=== PATIENT | male | born 1945 | race Caucasian/White ===

== ENCOUNTER 2017-10-04 12:46 | Emergency (ER) | payer OTHER, MEDICAID ==
[2017-10-04 12:56] VITALS: BP 149/89
--- NOTE | 2017-10-04 13:19 | EDPHY ---
H & P Stated Complaint: Stomache ache and nausea since 7pm last night. Time Seen by Provider: 10/04/17 13:13 HPI/ROS: CHIEF COMPLAINT: Nausea vomiting HISTORY OF PRESENT ILLNESS: The patient is a 71-year-old man who comes to the emergency department complaining that he has having nausea and vomiting last night. That stopped but then he was having abdominal cramping this morning. He states that it felt like his muscles were sore from vomiting. About an hour prior to arrival he took some [place] and since that his symptoms have completely resolved. He is now ear to go home and does not wish to have workup. No history of abdominal surgery. REVIEW OF SYSTEMS: Constitutional: denies: chills, fever, recent illness, recent injury EENTM: denies: blurred vision, double vision, nose congestion Respiratory: denies: cough, shortness of breath Cardiac: denies: chest pain, irregular heart rate, lightheadedness, palpitations Gastrointestinal/Abdominal: See HPI Genitourinary: denies: dysuria, frequency, hematuria, pain Musculoskeletal: denies: joint pain, muscle pain Skin: denies: lesions, rash, jaundice, bruising Neurological: denies: headache, numbness, paresthesia, tingling, dizziness, weakness Hematologic/Lymphatic: denies: blood clots, easy bleeding, easy bruising Immunologic/allergic: denies: HIV/AIDS, transplant EXAM: GENERAL: Well-appearing, well-nourished and in no acute distress. HEAD: Atraumatic, normocephalic. EYES: Pupils equal round and reactive to light, extraocular movements intact, sclera anicteric, conjunctiva are normal. ENT: TMs normal, nares patent, oropharynx clear without exudates. Moist mucous membranes. NECK: Normal range of motion, supple without lymphadenopathy or JVD. LUNGS: Breath sounds clear to auscultation bilaterally and equal. No wheezes rales or rhonchi. HEART: Regular rate and rhythm without murmurs, rubs or gallops. ABDOMEN: Soft, nontender, normoactive bowel sounds. No guarding, no rebound. No masses appreciated. BACK: No CVA tenderness, no spinal tenderness, step-offs or deformities EXTREMITIES: Normal range of motion, no pitting or edema. No clubbing or cyanosis. NEUROLOGICAL: Cranial nerves II through XII grossly intact. Normal speech, normal gait. 5/5 strength, normal movement in all extremities, normal sensation PSYCH: Normal mood, normal affect. SKIN: Warm, dry, normal turgor, no visible rashes or lesions. Source: Patient, Family Exam Limitations: No limitations - Personal History Current Tetanus Diphtheria and Acellular Pertussis (TDAP): Unsure - Medical/Surgical History Hx Asthma: No Hx Chronic Respiratory Disease: No Hx Diabetes: No Hx Cardiac Disease: No Hx Renal Disease: No Hx Cirrhosis: No Hx Alcoholism: No Hx HIV/AIDS: No Hx Splenectomy or Spleen Trauma: No Other PMH: Denies - Family History Significant Family History: No pertinent family hx - Social History Smoking Status: Never smoked Alcohol Use: Sober Constitutional: Initial Vital Signs Temperature (C) 36.9 C 10/04/17 12:52 Heart Rate 64 10/04/17 12:52 Respiratory Rate 18 10/04/17 12:52 Blood Pressure 149/89 H 10/04/17 12:52 O2 Sat (%) 96 10/04/17 12:52 O2 Delivery Mode Room Air Allergies/Adverse Reactions: No Known Allergies Allergy (Unverified 06/24/09 16:14) Home Medications: Medication Instructions Recorded NK [No Known Home Meds] 10/04/17 Medical Decision Making ED Course/Re-evaluation: The patient has a reassuring abdominal exam. I offered lab work and imaging to be sure he is not just having intermittent pain from a ruptured appendix or passing a kidney stone or gallstone. The patient and family decline. He is eager to go home. They promise to return immediately if the pain returns. Differential Diagnosis: Partial list of the Differential diagnosis considered include but were not limited to; gastritis, food poisoning, muscle spasm and although unlikely based on the history and physical exam, I also considered biliary disease, kidney stone, appendicitis, obstruction, volvulus, ischemia. I discussed these differential diagnoses and the plan with the patient as well as the usual and expected course. The patient understands that the diagnosis is provisional and that in medicine we are not always correct and that further workup is often warranted. Usual and customary warnings were given. All of the patient's questions were answered. The patient was instructed to return to the emergency department should the symptoms at all worsen or return, otherwise to followup with the physician as we discussed. Departure - Departure Disposition: Home, Routine, Self-Care Clinical Impression: Abdominal pain Qualifiers: Abdominal location: unspecified location Qualified Code(s): R10.9 - Unspecified abdominal pain Condition: Fair Instructions: Acute Abdominal Pain (ED) Referrals: NONE *PRIMARY CARE P,. [Primary Care Provider] - As per Instructions William Heller MD [[facility] [place] Primary Care Provider] - As per Instructions
== END 2017-10-04 13:20 | disposition home or self-care (01) ==
DX: R10.9 Unspecified abdominal pain (principal)

== ENCOUNTER 2018-04-09 21:43 | Observation (INO) | payer OTHER, MEDICAID ==
[2018-04-09] MEDS ORDERED: FAMOTIDINE 20 MG/NACL 50 ML IV ONE (22:12)
[2018-04-09] MEDS ORDERED: ONDANSETRON 4 MG/2 ML VIAL IVP ONE (22:12)
[2018-04-09] MEDS ORDERED: NS 1,000 ML IV ONE (22:12)
--- NOTE | 2018-04-09 22:15 | EDPHY ---
H & P Stated Complaint: vomiting Time Seen by Provider: 04/09/18 21:58 HPI/ROS: HPI The patient presents with abdominal pain and vomiting. He is brought in by ambulance from the grocery store. He developed abdominal pain about 1 hr ago which he describes as periumbilical and sharp. This pain was constant and moderate in severity. He went to the grocery store to see if he could by medication for this, though began vomiting several times and 911 was called. He received Zofran 0 DT in route. He has had ongoing vomiting here. He has continued abdominal pain. He denies any diarrhea or constipation. He has no history of similar symptoms. He has no prior abdominal operations. REVIEW OF SYSTEMS 10 systems were reviewed and negative with the exception of the elements mentioned in the history of present illness. PMHx: Healthy, though no primary care doctor Soc Hx: Lives in [place] with his sister PHYSICAL General Appearance: Alert, uncomfortable appearing Eyes: Pupils equal and round no pallor or injection ENT, Mouth: Mucous membranes dry Respiratory: There are no retractions, lungs are clear to auscultation Cardiovascular: Regular rate and rhythm Gastrointestinal: Abdomen is soft and diffusely tender to palpation, no masses , bowel sounds normal Neurological: A&O, moves all extremities Skin: Warm and dry, no rashes Musculoskeletal: Neck is supple non tender Extremities: symmetrical, full range of motion Psychiatric: Patient is oriented X 3, there is no agitation Source: Patient Exam Limitations: No limitations - Personal History Current Tetanus/Diphtheria Vaccine: Unsure Current Tetanus Diphtheria and Acellular Pertussis (TDAP): Unsure - Medical/Surgical History Hx Asthma: No Hx Chronic Respiratory Disease: No Hx Diabetes: No Hx Cardiac Disease: No Hx Renal Disease: No Hx Cirrhosis: No Hx Alcoholism: No Hx HIV/AIDS: No Hx Splenectomy or Spleen Trauma: No Other PMH: Denies - Social History Smoking Status: Never smoked Constitutional: Initial Vital Signs Temperature (C) 36.6 C 04/09/18 21:54 Heart Rate 66 04/09/18 21:54 Respiratory Rate 16 04/09/18 21:54 Blood Pressure 166/102 H 04/09/18 21:54 O2 Sat (%) 95 04/09/18 21:54 O2 Delivery Mode Nasal Cannula O2 (L/minute) 2 Allergies/Adverse Reactions: No Known Allergies Allergy (Verified 04/09/18 21:55) Home Medications: Medication Instructions Recorded Ondansetron Odt [Zofran Odt 4 mg 4 mg PO Q4 PRN #10 tab 04/10/18 (*)] levOFLOXACIN [Levofloxacin] 750 mg PO DAILY #7 tablet 04/10/18 Medical Decision Making - Diagnostics Imaging Results: Imaging Impressions Abdomen CT 04/09/18 22:12 Impression: 1. Large bilateral inguinal hernias, left greater than right with several loops of small bowel extending into both inguinal hernias and descending colon extending into the left inguinal hernia. Recommend surgery consult. 2. No bowel obstruction or dilation. 3. No evidence of diverticulitis, colitis, or definite appendicitis. 4. Left lower lobe pneumonia. Findings and recommendations discussed with Emergency Department physician, Nancy Mackenzie MD at 23:45 hour, 04/09/2018. Final report concurs with initial preliminary interpretation. Chest X-Ray 04/09/18 23:47 Impression: Left lower lobe pneumonia. Imaging: Discussed imaging studies w/ calliope player Radiologist, I viewed and interpreted images myself Differential Diagnosis: This is a 72-year-old male with no history of past medical problems, though does not see doctors routinely, who presents brought in by ambulance from the grocery store for periumbilical abdominal pain associated with multiple episodes of nonbloody nonbilious emesis. Here, he has ongoing vomiting, his vital signs are normal, he does appear mildly dehydrated and has abdominal tenderness. Plan for IV fluids, symptomatic relief, basic labs and CT scan. The patient received IV fluids and Zofran with transient improvement in his symptoms. Labs were relatively unremarkable. CT scan of his abdomen demonstrated bilateral inguinal hernias which were non incarcerated but quite large containing both small and large bowel. Because of this I consulted with Dr. Canchola, on-call general surgeon. He came to see the patient in the emergency department and was able to reduce both of his hernias without difficulty. Incidentally, the patient was noted to have a left lower lobe pneumonia on his CT scan. Chest x-ray confirmed this. I spoke with the patient and he does say that over the last 1 week he has had a productive cough without any fevers or chills. I have given him azithromycin and ceftriaxone for this. The patient was observed in the emergency department for several hours. He was able to tolerate fluids without difficulty. However he began to vomit again and had increasing diarrhea. He said he could not manage the symptoms at home. I plan to admit him to the hospitalist and have discussed the case with Dr. Almanza. - Data Points Laboratory Results: Laboratory Results 04/09/18 22:53 04/09/18 22:53 04/09/18 04/09/18 04/09/18 23:47 22:53 22:53 WBC RBC Hgb Hct MCV MCH MCHC RDW Plt Count MPV Neut % (Auto) Lymph % (Auto) [place] % (Auto) Eos % (Auto) Baso % (Auto) Nucleat RBC Rel Count Absolute Neuts (auto) Absolute Lymphs (auto) Absolute Monos (auto) Absolute Eos (auto) Absolute Basos (auto) Absolute Nucleated RBC Immature Gran % Immature Gran # Sodium 141 mEq/L mEq/L (135-145) Potassium 3.6 mEq/L mEq/L (3.5-5.2) Chloride 109 mEq/L mEq/L (97-110) Carbon Dioxide 24 mEq/l mEq/l (22-31) Anion Gap 8 mEq/L mEq/L (6-14) BUN 16 mg/dL mg/dL (7-23) Creatinine 1.1 mg/dL mg/dL (0.7-1.3) Estimated GFR > 60 Glucose 131 mg/dL H mg/dL (70-100) Calcium 9.5 mg/dL mg/dL (8.5-10.4) Total Bilirubin 0.6 mg/dL mg/dL (0.1-1.4) Conjugated Bilirubin 0.3 mg/dL mg/dL (0.0-0.5) Unconjugated Bilirubin 0.3 mg/dL mg/dL (0.0-1.1) AST 18 IU/L IU/L (17-59) ALT 20 IU/L L IU/L (21-72) Alkaline Phosphatase 64 IU/L IU/L (38-126) Total Protein 7.2 g/dL g/dL (6.3-8.2) Albumin 4.5 g/dL g/dL (3.5-5.0) Lipase 104 IU/L IU/L (23-300) Procalcitonin < 0.02 ng/mL L ng/mL (0.02-0.10) Urine Color YELLOW Urine Appearance CLEAR Urine pH 7.0 (5.0-7.5) Ur Specific [place] 1.018 (1.002-1.030) Urine Protein NEGATIVE (NEGATIVE) Urine Ketones TRACE H (NEGATIVE) Urine Blood NEGATIVE (NEGATIVE) Urine Nitrate NEGATIVE (NEGATIVE) Urine Bilirubin NEGATIVE (NEGATIVE) Urine Urobilinogen NEGATIVE EU EU (0.2-1.0) Ur Leukocyte Esterase NEGATIVE (NEGATIVE) Urine RBC 1-3 /hpf /hpf (0-3) Urine WBC 1-3 /hpf /hpf (0-3) Ur Epithelial Cells NONE SEEN /lpf /lpf (NONE-1+) Urine Mucus TRACE /lpf /lpf (NONE-1+) Urine Glucose 1+ H (NEGATIVE) 04/09/18 22:53 WBC 11.44 10^3/uL H 10^3/uL (3.80-9.50) RBC 4.84 10^6/uL 10^6/uL (4.40-6.38) Hgb 16.5 g/dL g/dL (13.7-17.5) Hct 45.8 % % (40.0-51.0) MCV 94.6 fL fL (81.5-99.8) MCH 34.1 pg pg (27.9-34.1) MCHC 36.0 g/dL g/dL (32.4-36.7) RDW 12.5 % % (11.5-15.2) Plt Count 215 10^3/uL 10^3/uL (150-400) MPV 10.0 fL fL (8.7-11.7) Neut % (Auto) 86.8 % H % (39.3-74.2) Lymph % (Auto) 8.3 % L % (15.0-45.0) [place] % (Auto) 4.0 % L % (4.5-13.0) Eos % (Auto) 0.2 % L % (0.6-7.6) Baso % (Auto) 0.3 % % (0.3-1.7) Nucleat RBC Rel Count 0.0 % % (0.0-0.2) Absolute Neuts (auto) 9.93 10^3/uL H 10^3/uL (1.70-6.50) Absolute Lymphs (auto) 0.95 10^3/uL L 10^3/uL (1.00-3.00) Absolute Monos (auto) 0.46 10^3/uL 10^3/uL (0.30-0.80) Absolute Eos (auto) 0.02 10^3/uL L 10^3/uL (0.03-0.40) Absolute Basos (auto) 0.03 10^3/uL 10^3/uL (0.02-0.10) Absolute Nucleated RBC 0.00 10^3/uL 10^3/uL (0-0.01) Immature Gran % 0.4 % % (0.0-1.1) Immature Gran # 0.05 10^3/uL 10^3/uL (0.00-0.10) Sodium Potassium Chloride Carbon Dioxide Anion Gap BUN Creatinine Estimated GFR Glucose Calcium Total Bilirubin Conjugated Bilirubin Unconjugated Bilirubin AST ALT Alkaline Phosphatase Total Protein Albumin Lipase Procalcitonin Urine Color Urine Appearance Urine pH Ur Specific [place] Urine Protein Urine Ketones Urine Blood Urine Nitrate Urine Bilirubin Urine Urobilinogen Ur Leukocyte Esterase Urine RBC Urine WBC Ur Epithelial Cells Urine Mucus Urine Glucose Medications Given: Hydromorphone HCl (Dilaudid) 0.4 mg IVP Q4HRS PRN PRN Reason: Pain, Severe Unable to Take PO Stop: 04/20/18 02:43 Last Admin: 04/10/18 03:17 Dose: 0.4 mg Potassium Chloride/Dextrose/Sod Cl (D5w 1/2 Ns W/ 20 Kcl/L) 1,000 mls @ 100 mls /hr IV CONT CLARA Stop: 10/07/18 02:14 Last Admin: 04/10/18 03:22 Dose: 1,000 mls Ondansetron HCl (Zofran) 4 mg IVP Q4HRS PRN PRN Reason: Nausea/Vomiting, Can't Take PO Stop: 10/07/18 02:11 Last Admin: 04/10/18 03:17 Dose: 4 mg Discontinued Medications Sodium Chloride (Ns) 1,000 mls @ 0 mls/hr IV EDNOW ONE; Wide Open PRN Reason: Protocol Stop: 04/09/18 22:13 Last Admin: 04/09/18 22:52 Dose: 1,000 mls Famotidine/Sodium Chloride (Pepcid 20 Mg (Premix)) 50 mls @ 200 mls/hr IV EDNOW ONE Stop: 04/09/18 22:26 Last Admin: 04/09/18 22:54 Dose: 50 mls Azithromycin 500 mg/ Sodium (Chloride) 255 mls @ 255 mls/hr IV EDNOW ONE PRN Reason: Protocol Stop: 04/10/18 01:14 Last Admin: 04/10/18 01:07 Dose: 255 mls Ceftriaxone Sodium/Dextrose (Rocephin 1 Gm (Premix)) 50 mls @ 100 mls/hr IV EDNOW ONE PRN Reason: Protocol Stop: 04/10/18 00:44 Last Admin: 04/10/18 00:21 Dose: 50 mls Ondansetron HCl (Zofran) 4 mg IVP EDNOW ONE Stop: 04/09/18 22:13 Last Admin: 04/09/18 22:54 Dose: 4 mg Departure - Departure Disposition: [facility] Inpatient Acute Clinical Impression: Pneumonia Qualifiers: Pneumonia type: due to unspecified organism Laterality: left Lung location: lower lobe of lung Qualified Code(s): J18.1 - Lobar pneumonia, unspecified organism Inguinal hernia bilateral, non-recurrent Qualifiers: Obstruction and gangrene presence: without obstruction or gangrene Recurrence: not specified as recurrent Qualified Code(s): K40.20 - Bilateral inguinal hernia , without obstruction or gangrene, not specified as recurrent Vomiting Qualifiers: Vomiting type: unspecified Vomiting Intractability: non-intractable Nausea presence: with nausea Qualified Code(s): R11.2 - Nausea with vomiting, unspecified Condition: Fair
[2018-04-09] MEDS ORDERED: IOPAMIDOL (ISOVUE 370) 100 ML BTL IV ONE (22:43)
[2018-04-09 23:04] LABS: PLATELET COUNT 215 10^3/uL (150-400)
[2018-04-10] MEDS ORDERED: AZITHROMYCIN IV 500 MG in NS 250 ML IV ONE (00:15)
[2018-04-10] MEDS ORDERED: ONDANSETRON 4MG PREPACK#2 BTL TAKEHOME ONE (01:51)
[2018-04-10] MEDS ORDERED: ACETAMINOPHEN 325 MG TAB PO PRN (02:12)
[2018-04-10] MEDS ORDERED: ONDANSETRON DISINTEGRATING 4 MG TAB PO PRN (02:12)
[2018-04-10] MEDS ORDERED: PROMETHAZINE HCL 25 MG/ML INJ IVP PRN (02:12)
[2018-04-10] MEDS ORDERED: ONDANSETRON 4 MG/2 ML VIAL IVP PRN (02:12)
[2018-04-10] MEDS ORDERED: D5W 1/2 NS W/ 20 KCl/L 1,000 ML IV SCH (02:15)
--- NOTE | 2018-04-10 02:39 | PDGENHP ---
History and Physical - Chief Complaint Nausea, vomiting - History of Present Illness 72 yo M w/ minimal PMHx presents with nausea, vomiting, and abdominal pain. The patient tells me he has had a cough, runny nose, and chills for about a week. Then, today he developed nausea, vomiting, abdominal pain, and diarrhea. He denies recent antibiotics or history of C. Diff. He did eat a spicy burger from [employer], which he says is unusual for him. He also denies sick contacts. He rarely visits doctors and takes no medications. He tells me his only medical problem is bilateral inguinal hernias. In the ED evaluation is fairly benign with 0/4 SIRS criteria. LLL pneumonia was noted on CT but he has minimal respiratory symptoms. At the time of my evaluation he remains significantly symptomatic with abdominal pain, nausea, and diarrhea. No blood noted in vomit or stool. Case discussed with ED physician Dr. Mackenzie; records reviewed and summarized above. History Information - Allergies/Home Medication List Allergies/Adverse Reactions: No Known Allergies Allergy (Verified 04/09/18 21:55) I have personally reviewed and updated: family history, medical history - Past Medical History no pertinent PMH - Surgical History Reports: no pertinent surgical hx - Family History Additional family history: Asked, denies - Social History Smoking Status: Never smoked Review of Systems Review of Systems: ROS: 10pt was reviewed & negative except for what was stated in HPI & below Physical Exam Physical Exam: Temp Pulse Resp BP Pulse Ox 36.6 C 79 16 168/100 H 99 04/09/18 21:54 04/10/18 01:44 04/10/18 01:44 04/10/18 01:44 04/10/18 01:44 Constitutional: chronically ill appearing, uncomfortable Eyes: PERRL, EOMI Ears, Nose, Mouth, Throat: moist mucous membranes, no oral mucosal ulcers Cardiovascular: regular rate and rhythym, no murmur, rub, or gallop Respiratory: no respiratory distress, clear to auscultation Gastrointestinal: normoactive bowel sounds, tenderness (Diffuse), No guarding, No rebound, No distension Skin: warm, normal color Musculoskeletal: full muscle strength, no muscle tenderness Neurologic: AAOx3, CN II-XII Intact Psychiatric: interacting appropriately, not anxious Lab Data & Imaging Review 04/09/18 22:53 04/09/18 22:53 WBC 11.44 10^3/uL (3.80-9.50) H 04/09/18 22:53 RBC 4.84 10^6/uL (4.40-6.38) 04/09/18 22:53 Hgb 16.5 g/dL (13.7-17.5) 04/09/18 22:53 Hct 45.8 % (40.0-51.0) 04/09/18 22:53 MCV 94.6 fL (81.5-99.8) 04/09/18 22:53 MCH 34.1 pg (27.9-34.1) 04/09/18 22:53 MCHC 36.0 g/dL (32.4-36.7) 04/09/18 22:53 RDW 12.5 % (11.5-15.2) 04/09/18 22:53 Plt Count 215 10^3/uL (150-400) 04/09/18 22:53 MPV 10.0 fL (8.7-11.7) 04/09/18 22:53 Neut % (Auto) 86.8 % (39.3-74.2) H 04/09/18 22:53 Lymph % (Auto) 8.3 % (15.0-45.0) L 04/09/18 22:53 [place] % (Auto) 4.0 % (4.5-13.0) L 04/09/18 22:53 Eos % (Auto) 0.2 % (0.6-7.6) L 04/09/18 22:53 Baso % (Auto) 0.3 % (0.3-1.7) 04/09/18 22:53 Nucleat RBC Rel Count 0.0 % (0.0-0.2) 04/09/18 22:53 Absolute Neuts (auto) 9.93 10^3/uL (1.70-6.50) H 04/09/18 22:53 Absolute Lymphs (auto) 0.95 10^3/uL (1.00-3.00) L 04/09/18 22:53 Absolute Monos (auto) 0.46 10^3/uL (0.30-0.80) 04/09/18 22:53 Absolute Eos (auto) 0.02 10^3/uL (0.03-0.40) L 04/09/18 22:53 Absolute Basos (auto) 0.03 10^3/uL (0.02-0.10) 04/09/18 22:53 Absolute Nucleated RBC 0.00 10^3/uL (0-0.01) 04/09/18 22:53 Immature Gran % 0.4 % (0.0-1.1) 04/09/18 22:53 Immature Gran # 0.05 10^3/uL (0.00-0.10) 04/09/18 22:53 Sodium 141 mEq/L (135-145) 04/09/18 22:53 Potassium 3.6 mEq/L (3.5-5.2) 04/09/18 22:53 Chloride 109 mEq/L (97-110) 04/09/18 22:53 Carbon Dioxide 24 mEq/l (22-31) 04/09/18 22:53 Anion Gap 8 mEq/L (6-14) 04/09/18 22:53 BUN 16 mg/dL (7-23) 04/09/18 22:53 Creatinine 1.1 mg/dL (0.7-1.3) 04/09/18 22:53 Estimated GFR > 60 04/09/18 22:53 Glucose 131 mg/dL (70-100) H 04/09/18 22:53 Calcium 9.5 mg/dL (8.5-10.4) 04/09/18 22:53 Total Bilirubin 0.6 mg/dL (0.1-1.4) 04/09/18 22:53 Conjugated Bilirubin 0.3 mg/dL (0.0-0.5) 04/09/18 22:53 Unconjugated Bilirubin 0.3 mg/dL (0.0-1.1) 04/09/18 22:53 AST 18 IU/L (17-59) 04/09/18 22:53 ALT 20 IU/L (21-72) L 04/09/18 22:53 Alkaline Phosphatase 64 IU/L (38-126) 04/09/18 22:53 Total Protein 7.2 g/dL (6.3-8.2) 04/09/18 22:53 Albumin 4.5 g/dL (3.5-5.0) 04/09/18 22:53 Lipase 104 IU/L (23-300) 04/09/18 22:53 Urine Color YELLOW 04/09/18 23:47 Urine Appearance CLEAR 04/09/18 23:47 Urine pH 7.0 (5.0-7.5) 04/09/18 23:47 Ur Specific [place] 1.018 (1.002-1.030) 04/09/18 23:47 Urine Protein NEGATIVE (NEGATIVE) 04/09/18 23:47 Urine Ketones TRACE (NEGATIVE) H 04/09/18 23:47 Urine Blood NEGATIVE (NEGATIVE) 04/09/18 23:47 Urine Nitrate NEGATIVE (NEGATIVE) 04/09/18 23:47 Urine Bilirubin NEGATIVE (NEGATIVE) 04/09/18 23:47 Urine Urobilinogen NEGATIVE EU (0.2-1.0) 04/09/18 23:47 Ur Leukocyte Esterase NEGATIVE (NEGATIVE) 04/09/18 23:47 Urine RBC 1-3 /hpf (0-3) 04/09/18 23:47 Urine WBC 1-3 /hpf (0-3) 04/09/18 23:47 Ur Epithelial Cells NONE SEEN /lpf (NONE-1+) 04/09/18 23:47 Urine Mucus TRACE /lpf (NONE-1+) 04/09/18 23:47 Urine Glucose 1+ (NEGATIVE) H 04/09/18 23:47 Imaging Review: Imaging Impressions Abdomen CT 04/09/18 22:12 Impression: 1. Large bilateral inguinal hernias, left greater than right with several loops of small bowel extending into both inguinal hernias and descending colon extending into the left inguinal hernia. Recommend surgery consult. 2. No bowel obstruction or dilation. 3. No evidence of diverticulitis, colitis, or definite appendicitis. 4. Left lower lobe pneumonia. Findings and recommendations discussed with Emergency Department physician, Nancy Mackenzie MD at 23:45 hour, 04/09/2018. Final report concurs with initial preliminary interpretation. Chest X-Ray 04/09/18 23:47 Impression: Left lower lobe pneumonia. Assessment & Plan Assessment: 72 yo M w/ minimal PMHx presents with abdominal pain, nausea, and vomiting. Plan: 1. Nausea, vomiting - Most likely etiology is viral noting coexisting URI symptoms and CT (personally reviewed/interpreted) without significant pathology. He has 0/4 SIRS criteria at the moment. - Admit for observation - GI PCR if diarrhea continues - mIVF, anti-emetics PRN - Clear liquid diet, ADAT 2. LLL infiltrate - This is subtle but present on imaging. The patient has had viral symptoms for the last week and is displaying no respiratory distress and 0 /4 SIRS criteria in the ED. He is currently oxygenating well on RA. - S/p CTX/Azithro in the ED - Observe off of further antibiotics for now, low threshold to restart CAP coverage if symptoms develop - Will check respiratory PCR, procalcitonin 3. Bilateral inguinal hernias - These were able to be reduced by general surgery in the ED. - Outpatient follow up Diet - Clears, mIVF, ADAT Code - Full Ppx - LMWH Dispo - Admit under observation status
[2018-04-10] MEDS ORDERED: HYDROmorphONE/DILAUDID 1 MG/ML INJ IVP PRN (02:44)
[2018-04-10 05:23] LABS: PLATELET COUNT 192 10^3/uL (150-400)
[2018-04-10 07:42] VITALS: BP 108/64
[2018-04-10] MEDS ORDERED: MULTIVITAMINS 1 EACH TAB PO SCH (09:00)
[2018-04-10] MEDS ORDERED: ENOXAPARIN 40 MG/0.4 ML SYR SC SCH (09:00)
[2018-04-10] MEDS ORDERED: Herbals/Supplements -Info Only PO SCH (09:00)
--- NOTE | 2018-04-10 11:04 | ASMTCMCOM ---
CM Note CM Note Notes: Met with pt, he lives in [place] with his sister Kemi. [facility] and then felt very ill, an ambulance was called, and pt admitted into the hospital. CM called his sister with pt's permission and let her know pt was in hospital, she was very worried. She states that pt has some memory issues but otherwise is very robust. Sister and brother will help getting him to his truck and getting him home. AVELINA Plan: Independent Date Signed: 04/10/2018 11:03 AM Electronically Signed By:Tram Kat RN
--- NOTE | 2018-04-10 12:07 | ASMTLACE ---
LACE Length of stay for Answers: Less than 1 day current admission Acuity / Level of Answers: Yes Care: Did the patient have an inpatient admission? # of Emergency department Answers: 1-2 visits in the last 6 months Score: 4 Date Signed: 04/10/2018 12:07 PM Electronically Signed By:Tram Kat RN
--- NOTE | 2018-04-10 18:21 | GDS ---
DISCHARGE DIAGNOSES: 1. Nausea and vomiting. 2. Left lower lobe infiltrate. 3. Bilateral inguinal hernias. STUDIES AND PROCEDURES DONE: CT of the abdomen. PHYSICAL EXAMINATION: GENERAL: The patient is alert. VITAL SIGNS: Afebrile at 36.7, pulse 65, respiratory rate 16, blood pressure is 108/64, he is saturating 94% on room air. I have seen and evaluated the patient on the day of discharge. HOSPITAL COURSE: The patient is a 72-year-old male who presented to the emergency room with complaints of nausea and vomiting, abdominal pain. He was evaluated during this hospitalization with a CT scan of his abdomen. He was noted to have intermittent nausea, which has completely resolved at this time per the patient. He is tolerating a regular diet. He did receive supportive care during this hospital course. Laboratory values are essentially benign. CT of the abdomen did demonstrate bilateral inguinal hernias. The patient tells me he is able to reduce these independently in the outpatient setting. I have instructed to follow up with the general surgeon for future treatment. There was a questionable left lower lobe infiltrate on imaging. He does have recent viral symptoms. He has continued with antibiotic therapy. He will be discharged home independently. DISCHARGE MEDICATIONS: Please refer to EMR form. I have provided the patient with any prescription for Levaquin 750mg daily at the time of disposition. Followup will be with his primary care physician, Dr. Genny Briggs, as well as Dr. Erickson Dow. /[id number]/MODL MTDD
== END 2018-04-10 12:50 | disposition home or self-care (01) ==
LOC: EDUNIT# → INTOOBSV 04-10 02:01 → F3E 04-10 03:05
PROVIDERS: ADMIT Student in an Organized Health Care Education/Training Program; ATTEND Internal Medicine
DX: R11.2 Nausea with vomiting, unspecified (principal); R91.8 Other nonspecific abnormal finding of lung field; K40.20 Bilateral inguinal hernia, without obstruction or gangrene, not specified as recurrent
CPT/HCPCS: 71046; 74177; 96361; 96365; 96367; 96375; 96376; 99285; G0378; J0456; J0696; J1170; J1650; J2405; Q9967

== ENCOUNTER → 2018-05-09 | Outpatient (CLI) | payer OTHER, MEDICAID | LOC: FIMAGING 15:14 | PROVIDERS: ATTEND Internal Medicine | DX: J40 Bronchitis, not specified as acute or chronic (principal); Z87.01 Personal history of pneumonia (recurrent) ==

== ENCOUNTER 2018-05-20 10:58 | Observation (INO) | payer OTHER, MEDICAID ==
--- NOTE | 2018-05-16 13:41 | GHP ---
[f rep st] PREOP HISTORY AND PHYSICAL DATE OF ADMISSION: 05/20/2018 CHIEF COMPLAINT: Bilateral inguinal hernias. HISTORY OF PRESENT ILLNESS: This is a 72-year-old male who presents for surgical evaluation of bilat eral inguinal hernias. They have been present for several months and are getting progressively more tender. PAST MEDICAL HISTORY: Malignant melanoma, pneumonia. PAST SURGICAL HISTORY: Melanoma resection, right cheek. MEDICATIONS: Tylenol 325 mg as needed for pain. ALLERGIES: Seasonal allergies, no known drug allergies. SOCIAL HISTORY: The patient is a nonsmoker. He drinks alcohol occasionally. He has a prior history of recreational drug use; however, denies current use. PHYSICAL EXAM: GENERAL: Well appearing, well dressed, in no acute distress. HEENT: Normocephalic, atraumatic. No gross hearing deficits. Mucous membranes moist, PERRLA. CARDIOVASCULAR: Regular r ate and rhythm, no clicks, murmurs or rubs. CHEST: Clear to auscultation bilaterally. No increased work of breathing. ABDOMEN: Soft, nontender, nondistended. GENITOURINARY: Bilateral inguinal her nias are present. MUSCULOSKELETAL: Moves all extremities equally x4. NEUROLOGIC: Alert and orient ed x3. PSYCHIATRIC: Appropriate mood and affect. IMPRESSION/PLAN: This is a healthy 72-year-old male with bilateral inguinal hernias. We have discus sed all risks and options. Risks of surgery include, but are not limited to infection, bleeding, dam age to surrounding structures, including the spermatic cord, bowel, or bladder, recurrence, heart att ack, and . We will plan for laparoscopic bilateral inguinal hernia repairs with mesh. Patient understands and wishes to proceed. /[id number]/MODL
[2018-05-20] MEDS ORDERED: ceFAZolin 2 GM/DEXTROSE 100 ML IV ONE (11:07)
[2018-05-20] MEDS ORDERED: LR 1,000 ML IV ONE (11:09)
--- NOTE | 2018-05-20 12:24 | PDHPUP ---
History & Physical Update H&P update statement: This history and physical update is based on an assessment of the patient which was completed after admission or registration (within 24 hours), but prior to the surgery/procedure. H&P update: H&P reviewed & patient examined, no change in patient's condition since H&P completed
--- NOTE | 2018-05-20 12:26 | POSTOPPROG ---
Post Op Note Date of Operation: 05/20/18 Surgeon: Jessica Mitchell Needle Grader: Jessica Mitchell Anesthesiologist: Juan Diego Lin Anesthesia: GET(General Endotracheal) Pre-op Diagnosis: BIH Post-op Diagnosis: same Procedure: lap BIH repairs c mesh Findings: huge indirect RIH, large direct LIH Inf/Abcess present in the surg proc area at time of surgery?: No EBL: Minimal Complications: none
[2018-05-20] MEDS ORDERED: BUPIVACAINE 0.5% 30 ML SDV ONE (12:34)
--- NOTE | 2018-05-20 12:57 | PDANEPAE ---
ANE Past Medical History - Cardiovascular History Hx Hypertension: No Hx Arrhythmias: No Hx Chest Pain: No Hx Coronary Artery / Peripheral Vascular Disease: No Hx CHF / Valvular Disease: No Hx Palpitations: No - Pulmonary History Hx COPD: No Hx Asthma/Reactive Airway Disease: No Hx Recent Upper Respiratory Infection: No Hx Oxygen in Use at Home: No Hx Sleep Apnea: No Sleep Apnea Screening Result - Last Documented: Negative Pulmonary History Comment: recent PNA that was treated with antibiotics - Neurologic History Hx Cerebrovascular Accident: No Hx Seizures: No Hx Dementia: No - Endocrine History Hx Diabetes: No Hypothyroid: No Hyperthyroid: No Obesity: no - Renal History Hx Renal Disorders: No - Liver History Hx Hepatic Disorders: No - Neurological & Psychiatric Hx Hx Neurological and Psychiatric Disorders: No - Cancer History Hx Cancer: No - Congenital Disorder History Hx Congenital Disorders: No - GI History GERD: no Hx Gastrointestinal Disorders: No - Other Health History Other Health History: none - Chronic Pain History Chronic Pain: No - Surgical History Prior Surgeries: melanoma removed from right cheek ANE Review of Systems Review of Systems: - Exercise capacity Exercise capacity: >=4 METS METS (RN): 4 METS ANE Patient History - Allergies Allergies/Adverse Reactions: No Known Allergies Allergy (Verified 05/15/18 10:50) - Home Medications Home Medications: Acetaminophen [Tylenol 325mg (*)] PRN 05/15/18 [Last Taken 05/19/18] - NPO status NPO Since - Liquids (Date): 05/20/18 NPO Since - Liquids (Time): 00:00 NPO Since - Solids (Date): 05/19/18 NPO Since - Solids (Time): 07:00 - Anes Hx Anes Hx: no prior problems - Smoking Hx Smoking Status: Never smoked - Alcohol Use Alcohol Use: Rarely - Family Anes Hx Family Anes Hx: neg - N/A Family Hx Anesthesia Complications: none ANE Labs/Vital Signs - Vital Signs Blood Pressure: 136/84 Heart Rate: 71 Respiratory Rate: 18 O2 Sat (%): 96 Height: 175 cm Weight: 74 kg ANE Physical Exam - Airway Neck exam: FROM Mallampati Score: Class 2 Mouth exam: dentures - Pulmonary Pulmonary: no respiratory distress, no rales or rhonchi, clear to auscultation - Cardiovascular Cardiovascular: regular rate and rhythym, no murmur, rub, or gallop - ASA Status ASA Status: II ANE Anesthesia Plan Anesthesia Plan: general endotracheal anesthesia Total IV Anesthesia: No
[2018-05-20] MEDS ORDERED: REMIFENTANIL HCL 1 MG VIAL ONE (13:32)
[2018-05-20] MEDS ORDERED: fentaNYL 100 MCG/2 ML INJ ONE ×2 (13:32→15:49)
[2018-05-20] MEDS ORDERED: ROCURONIUM 50 MG/5 ML VIAL ONE ×2 (13:33→14:41)
[2018-05-20] MEDS ORDERED: PROPOFOL/EMULSION 500 MG/50 ML BOTTLE IV ONE (13:33)
[2018-05-20] MEDS ORDERED: PROPOFOL 200 MG/20 ML VIAL ONE (13:33)
[2018-05-20] MEDS ORDERED: ONDANSETRON 4 MG/2 ML VIAL ONE (13:33)
[2018-05-20] MEDS ORDERED: KETOROLAC 30 MG/1 ML SDV ONE (13:34)
[2018-05-20] MEDS ORDERED: DEXAMETHASONE 4 MG/ML VIAL ONE (13:34)
[2018-05-20] MEDS ORDERED: LIDOCAINE 2% 5 ML SDV ONE (13:34)
[2018-05-20] MEDS ORDERED: PHENYLEPHRINE HCL 100 MCG/ML SYR ONE (13:42)
[2018-05-20] MEDS ORDERED: PROMETHAZINE HCL 25 MG/ML INJ IVP PRN (14:03)
[2018-05-20] MEDS ORDERED: ACETAMINOPHEN 500 MG TAB PO PRN (14:03)
[2018-05-20] MEDS ORDERED: ONDANSETRON 4 MG/2 ML VIAL IVP PRN ×2 (14:03→15:48)
[2018-05-20] MEDS ORDERED: oxyCODONE IR 5 MG TAB PO PRN (14:03)
[2018-05-20] MEDS ORDERED: HYDROCODONE/APAP 5/325 TAB PO PRN (14:03)
[2018-05-20] MEDS ORDERED: fentaNYL 100 MCG/2 ML INJ IVP PRN (14:03)
[2018-05-20] MEDS ORDERED: NALOXONE HCL 0.4 MG/ML INJ IVP PRN (14:03)
[2018-05-20] MEDS ORDERED: PHENYLEPHRINE HCL 100 MCG/ML SYR IVP PRN (14:03)
[2018-05-20] MEDS ORDERED: SUGAMMADEX SODIUM 200 MG/2 ML VIAL IVP ONE (15:08)
[2018-05-20] MEDS ORDERED: HYDROmorphONE/DILAUDID 1 MG/ML INJ IVP PRN (15:48)
[2018-05-20] MEDS ORDERED: OXYCODONE/APAP 5/325 TAB PO PRN (15:48)
[2018-05-20] MEDS ORDERED: LABETALOL HCL 20 MG/4 ML INJ IVP ONE (15:58)
[2018-05-20] MEDS: LABETALOL HCL 5 MG/ML 20 ML MDV IVP PRN ×3 (16:00→16:27)
--- NOTE | 2018-05-20 16:25 | POSTANESTH ---
Post Anesthetic Evaluation Cardiovascular Status: Similar to Pre-Op Cond Respiratory Status: Normal, Stable Level of Consciousness/Mental Status: Can Participate in Eval Pain Control: Adequate, Prn Tx Ordered Nausea/Vomiting Control: Adequate, Prn Tx Ordered Complications Possibly Related to Anesthesia: None Noted
--- NOTE | 2018-05-21 09:34 | ASDISCHSUM ---
Discharge Information Plan Status:Home with No Needs Medically Cleared to Leave: Discharge Date: CM D/C Disposition:Home, Routine, Self-Care ADT D/C Disposition:Home, Routine, Self-Care Projected Discharge Date:05/21/2018 12:00 AM Transportation at D/C:Family Discharge Delay Reason: Follow-Up Date:05/21/2018 12:00 AM Discharge Slot: Final Diagnosis: Placement Information Patient Contact Information Contact Name:TAVO Relationship:Sister Address:[address] Work Phone: City:[employer] [facility] Phone: [facility]/Zip Code:[place] [address] Email: Financial Information Financial Class:Medicare Primary Plan Desc:MEDICARE OUTPATIENT Primary Plan Number:[id number] Secondary Plan Desc:MEDICAID [place] Secondary Plan Number:[id number] Assessment Information LACE LACE Length of stay for Answers: Less than 1 day current admission Acuity / Level of Answers: No Care: Did the patient have an inpatient admission? # of Emergency department Answers: 1-2 visits in the last 6 months Score: 1 Date Signed: 05/21/2018 09:33 AM Electronically Signed By:DOREEN Chapman Case Management Discharge Plan Note Case Management Discharge Discharge Order Complete? Answers: Yes Patient to Obtain Answers: via Family Medications Transportation Arranged Answers: Family/Friends Discharge Comments Notes: Pt is a 72 yo M in for hernia repair. Pt is being discharged independently today, family to transport. No CM needs identified. Date Signed: 05/21/2018 09:32 AM Electronically Signed By:DOREEN Chapman Intervention Information
--- NOTE | 2018-05-21 09:54 | SOAPPROG ---
SOAP Progress Note Assessment/Plan: Assessment/Plan: 72 Y M s/p lap BIH repairs. Very large hernias. POD#1. Doing well. Minimal pain. Tolerating diet. Wounds ok. D/c to home. Family has Rx for pain. S: very little pain. very pleased with procedure and results thus far. O: alert, nad ctab rrr abd soft, inc cdi, no recurrent hernias 05/21/18 09:49 Objective: Vital Signs Temp Pulse Resp BP Pulse Ox 36.8 C 72 16 123/70 H 95 05/21/18 08:52 05/21/18 08:52 05/21/18 08:52 05/21/18 08:52 05/21/18 08:52 05/20/18 05/21/18 05/22/18 05:59 05:59 05:59 Intake Total 2550 200 Output Total 1430 200 Balance 1120 0 ICD10 Worksheet Patient Problems: Problems Problem Status Onset Inguinal hernia bilateral, non-recurrent Acute Pneumonia Acute Vomiting Acute chronic disease mgmt/transitional care Acute
[2018-05-21] MEDS: IBUPROFEN 600 MG TAB PO PRN ×2 (10:37→16:20)
[2018-05-21 11:27] VITALS: BP 134/84
--- NOTE | 2018-05-21 12:06 | GOP ---
[f rep st] OPERATIVE REPORT DATE OF OPERATION: 05/20/2018 SURGEON: Adam Dow MD PREOPERATIVE DIAGNOSIS: Bilateral inguinal hernias, incarcerated on the left. POSTOPERATIVE DIAGNOSIS: Bilateral inguinal hernias, incarcerated on the left. PROCEDURE PERFORMED: Laparoscopic bilateral inguinal hernia repairs with mesh. FINDINGS: The patient was found to have a giant left sliding inguinal hernia with incarceration. On the right side, he had a large direct defect. DESCRIPTION OF PROCEDURE: The patient was taken to the operating room where he received a satisfacto ry general endotracheal anesthesia by Dr. Lin. He was placed in the supine position, prepped and draped in the usual sterile fashion. Infraumbilical incision was made and carried down to the r ectus sheath which was incised. A subfascial tunnel was developed in the preperitoneal space which w as dissected free with a balloon dissector, which was replaced with CO2 insufflation trocar. It appe ars that the balloon dissector could not totally reduce the incarcerated left inguinal hernia and ess entially the peritoneum had to be opened. Two other trocars were placed under direct vision in the m idline. The preperitoneal space was then dissected free in the sigmoid colon and the hernia sac was freed up from the cord structures and reduced. The cord was mobilized. The hernia sac was completel y dissected off the cord structures. It was extremely long, going down into the scrotum. Covidien p olyester mesh patch was then inserted. A split patch was used, passed the limb around the cord struc tures, then anchored in place with AbsorbaTack, securing it to Kevin ligament, to the lacunar ligame nt, to the anterior abdominal wall, and the lateral abdominal wall outside the internal ring. Attention was then turned to the right side where the inguinal preperitoneal space was dissected free and exposed. Again, the cord was mobilized. There were no indirect sacs on that side. The direct defect was dissected free and reduced. On the right side, a Covidien onlay patch was placed and anch ored in place with AbsorbaTack, securing it to Kevin ligament, lacunar ligament, the anterior abdomi nal wall, and the lateral abdominal wall outside the internal ring. Hemostasis was assured. The per itoneum was then brought up over the mesh repairs and anchored in place around the entire arc of the dissection with AbsorbaTack as well. Hemostasis was assured. Pneumoperitoneum was released. Trocar s were removed under direct vision. Trocar sites were closed with 0 Vicryl for the fascia, 4-0 Monoc ryl subcuticular stitch for the skin. He tolerated the procedure well, was taken to the recovery vicente in good condition. There were no complications. Blood loss negligible. /[id number]/MODL
[2018-05-22] MEDS ORDERED: ENOXAPARIN 40 MG/0.4 ML SYR SC SCH (09:00)
== END 2018-05-21 16:45 | disposition home or self-care (01) ==
LOC: FSGY 10:58 → F3E 15:47 → F1N 17:14
PROVIDERS: ADMIT Surgery; ATTEND Surgery
PROC: 0YUA4JZ Supplement Bilateral Inguinal Region with Synthetic Substitute, Percutaneous Endoscopic Approach (ICD-10-PCS; principal; 2018-05-20 12:45)
DX: K40.00 Bilateral inguinal hernia, with obstruction, without gangrene, not specified as recurrent (principal); Z87.01 Personal history of pneumonia (recurrent); Z85.820 Personal history of malignant melanoma of skin
CPT/HCPCS: 49650; C1727; C1781; J0690; J1100; J1885; J2370; J2405; J2704; J3010

== ENCOUNTER → 2018-06-30 | Outpatient (CLI) | payer OTHER, MEDICAID ==
[~2018-06-30] MED LIST: IOPAMIDOL (ISOVUE-300) 100 ML BTL ONE
== END ==
LOC: FIMAGING 10:49
PROVIDERS: ATTEND Surgery
DX: Z09 Encounter for follow-up examination after completed treatment for conditions other than malignant neoplasm (principal); R10.32 Left lower quadrant pain
CPT/HCPCS: 74177; Q9967; 82565-PO

== ENCOUNTER → 2018-08-11 | Outpatient (CLI) | payer OTHER, MEDICAID | LOC: FIMAGING 16:11 | PROVIDERS: ATTEND Internal Medicine | DX: J18.9 Pneumonia, unspecified organism (principal); J90 Pleural effusion, not elsewhere classified ==

== ENCOUNTER → 2018-08-18 | Outpatient (CLI) | payer OTHER, MEDICAID | LOC: FIMAGING 14:41 | PROVIDERS: ATTEND Internal Medicine | DX: J18.9 Pneumonia, unspecified organism (principal) ==

== ENCOUNTER 2018-09-08 11:00 | Observation (INO) | payer OTHER, MEDICAID | END 2018-09-08 21:01 | disposition home or self-care (01) | LOC: FSGY 11:00 → F3E 14:19 → F3N 16:08 ==